=== PATIENT | male | born 1995 | race Two or more races ===

== ENCOUNTER → 2020-02-15 | Outpatient (CLI) | payer OTHER | END | disposition home or self-care (01) | LOC: OFIC 805 15:30 | PROVIDERS: ATTEND Otolaryngology Otology & Neurotology | DX: C09.9 Malignant neoplasm of tonsil, unspecified (principal); R47.02 Dysphasia; J35.1 Hypertrophy of tonsils ==

== ENCOUNTER 2020-02-29 15:10 | Outpatient (CLI) | payer OTHER | END 2020-02-29 16:00 | disposition home or self-care (01) | LOC: OFIC 805 15:10 | PROVIDERS: ATTEND Otolaryngology Otology & Neurotology | DX: R13.19 Other dysphagia (principal); J35.1 Hypertrophy of tonsils; K21.00 Gastro-esophageal reflux disease with esophagitis, without bleeding ==